=== PATIENT | female | born 1950 | race Caucasian/White ===

== ENCOUNTER → 2019-06-03 | Outpatient (CLI) | payer OTHER, MEDICARE ==
[~2019-06-03] VITALS: Ht 165.1 cm; Wt 74.8 kg
[~2019-06-03] MED LIST: ALLEGRA ALLERG180 MG PO; ASPIR 8181 MG PO; ATACAND32 MG PO; BIEST/PROG PO; CALCIUM 600 +1 EAC1 PO; CELEBREX 200 M200 M1 PO; CHOLECALCIFEROL1 GM PO; COLACE100 MG PO; COMBIGAN EYE DR10 ML OPHTHALMIC; COQ-10100 MG PO; COUMADIN 2 MG TA2 M1 PO; COUMADIN 3 MG TA3 MG PO; EFFEXOR XR150 MG PO; EVISTA PO; HYDROXYCHLOR PO; IRON18 M1 PO; IRON325 PO; L-LYSINE600 MG PO; LIVALO2 MG PO; LIVER-KIDNEY C1 EACH PO; LOVENOX40 MG/0.4 SUBQ; MELOXICAM15 MG PO; METFORMIN HCL500 M3 PO; MIRALAX17 GM PO; OMEGA-31000 M1 PO; OXYBUTYNIN 5 MG5 M2 PO; PERCOCET PO; PRILOSEC20 MG PO; TOPROL XL25 MG PO; TRAVATAN Z2.5 ML OPHTHALMIC; TRICOR145 MG PO; ZETIA10 MG PO
[2019-06-03 07:06] VITALS: BP 134/58
--- NOTE | 2019-06-03 08:42 | EKG ---
[address] [place] [address] ELECTROCARDIOGRAM REPORT Name: SEVERIANOBERNICEEYAD [facility] [id number] Admission: 06/03/19 Attend Phys: Marcellus Kothari MD, Discharge: Date of : 48 Report #: [id number] THIS REPORT FOR: //name// [facility] Test Date: 2019-06-03 Test Time: 07:31:20 Pat Name: EYAD FAUSTIN Department: Room: Gender: F Puttier: Gabo JOHNSON : 1950 Requested By: Marcellus Kothari Order Number: [id number] MD: Wade Archuleta Measurements Intervals [place] Rate: 62 P: 61 MS: 154 QRS: 43 QRSD: 130 T: 31 QT: 448 QTc: 455 Interpretive Statements Sinus rhythm Right bundle branch block Compared to ECG 09/07/2014 09:46:45 No significant changes Electronically Signed On 06-03-2019 8:42:28 BRINE TANK SEPARATOR OPERATOR by Wade Archuleta [email or web address] <ELECTRONICALLY SIGNED> By: Wade Archuleta MD 06/03/19 0842 0 0 Wade Archuleta MD /BRITTNEY
--- NOTE | 2019-06-03 09:14 | CATHLAB ---
[facility] [address] [place] [address] INVASIVE PROCEDURE REPORT Name: EYAD FAUSTIN Indra Room #: REG CL [facility] [id number] Admission: 06/03/19 Attend Phys: Marcellus Kothari, Discharge: Date of : 48 Report #: [id number] THIS REPORT FOR: //name// APPROVED REPORT Study performed: 06/03/2019 07:42:29 Patient Details Patient Status: Out-Patient Room #: The patient is a 68 year-old female Event Personnel Marcellus Kothari Machine Bunch Maker, Sara Lewis RN RN, Kathia Jacobson RTR Scrub, Lisbeth Ballard RTR Scrub, Juan Antonio Clark, Gila Harris waiter/waitress club Performed Left Heart Cath w/or w/o Coronaries [id number] [facility] Indication Chest pain Procedure Narrative The Right Groin^ was infiltrated with 1% Lidocaine subcutaneous anesthesia. A PINNACLE 6FR Sheath #[id number] sheath was inserted into the RFA^. Coronary angiography was performed using coronary diagnostic catheters. The right coronary system was accessed and visualized with a JR4 catheter. The left coronary system was accessed and visualized with a JL4 catheter. The left ventricle was accessed and visualized with a PIGTAIL catheter. Left ventricular/Aortic Valve gradient assessed via catheter pullback. Left ventriculogram was performed in 30 degree projection. Closure device was deployed with a 6 Fr MYNXGRIP 6/7F #[id number]. The patient tolerated the procedure well and there were no complications associated with the procedure. There was no hematoma. Intraoperative Conscious Sedation Sedation start time: 8.04 Case end Time: 8.36 Fentanyl 50 mcg Versed 1 mg Fluoro Time: 1.90 minutes Dose: DAP 3014.00 cGycm2 404 mGy Contrast Type and Amount: Omnipaque 100 ml [facility] [address] [address] INVASIVE PROCEDURE REPORT Name: EYAD FAUSTIN Room #: REG [facility]ddie#: [id number] Admission: 06/03/19 Attend Phys: Marcellus Kothari, Discharge: Date of : 48 Report #: [id number] Coronary Angiography The patient's coronary anatomy is right dominant. Diagnostic Cath Left Main Normal left main LAD Normal left anterior descending Diagonal 1 Normal diagonal branch Circumflex Large nondominant circumflex comprised of two marginal branches Normal circumflex OM1 Normal first marginal branch OM2 Normal second marginal branch Right Coronary Normal dominant right coronary R PDA Normal posterior descending RPLV Normal, small posterior lateral branch Left Ventriculography The left ventricle is normal in size with normal contractility. The left ventricular ejection fraction is estimated to be 65-70%. Left ventricular wall motion abnormalities are not present. There is no mitral insufficiency. Hemodynamics The aortic pressure is 148/48 mmHg with a mean of 97 mmHg. The left ventricular pressure is 147/11 mmHg with a mean of mmHg. The left ventricular end diastolic pressure is 24 mmHg. There was no gradient across the aortic valve upon pullback. Pullback from the left ventricle to the aorta revealed no gradient across the aortic valve. Conclusion 1. Normal to hyperdynamic global and regional left ventricular systolic function. Ejection fraction 65-70% 2. Normal left main 3. Normal coronary vasculature. Right coronary dominant circulation <ELECTRONICALLY SIGNED> By: Marcellus Kothari MD, FACC 06/03/19913 3 3 Marcellus Kothari MD, FACC /INF
--- NOTE | 2019-06-03 09:15 | NUR ---
Pt states migraine is a little better. States there is nothing I can do. Lights low, door closed. Pt given diabetic breakfast tray. in room helping.
== END | disposition home or self-care (01) ==
LOC: CATH 06:38
DX: R07.9 Chest pain, unspecified (principal); R06.09 Other forms of dyspnea; I10 Essential (primary) hypertension; E78.5 Hyperlipidemia, unspecified; K21.9 Gastro-esophageal reflux disease without esophagitis; D64.9 Anemia, unspecified; M19.90 Unspecified osteoarthritis, unspecified site; G47.30 Sleep apnea, unspecified; F32.9 Major depressive disorder, single episode, unspecified; Z98.890 Other specified postprocedural states; Z79.899 Other long term (current) drug therapy; Z90.710 Acquired absence of both cervix and uterus; Z90.49 Acquired absence of other specified parts of digestive tract; Z98.41 Cataract extraction status, right eye; Z82.49 Family history of ischemic heart disease and other diseases of the circulatory system; Z96.1 Presence of intraocular lens; Z88.8 Allergy status to other drugs, medicaments and biological substances

== ENCOUNTER → 2020-01-14 | Outpatient (CLI) | payer OTHER, MEDICARE ==
[~2020-01-14] VITALS: Ht 165.1 cm; Wt 77.1 kg
[~2020-01-14] MED LIST changes: -CHOLECALCIFEROL1 GM PO; +CINNAMON500 MG PO; +HRT PO; +NORVASC 2.5 MG2.5 M1 PO; +PRILOSEC OTC20 MG PO; +VITAMIN C500 M1 PO; +VITAMIN D350 MCG PO; +XYZAL5 MG PO
--- NOTE | ~2020-01-14 | HPC ---
[facility] [place] [address] PAIN MANAGEMENT CONSULTATION Name: EYAD FAUSTIN Room #: REG SAMMY Marcus#: [id number] Admission: 01/14/20 Attend Phys: Luis White MD Discharge: Date of : 48 Report #: [id number] THIS REPORT FOR: cc: Cain Payne II, MD, II,Cain White,Luis Yanez MD ~ CC: CAIN White DATE OF SERVICE: 01/14/2020 CHIEF COMPLAINT: Low back pain with radiation into the posterior aspect of both legs. HISTORY: The patient is a chel 69-year-old who is here today at the request of Dr. Cain Payne because of exacerbation of chronic back pain. She has complained of some aching back over the last several years, but it has really gotten much worse over the last several months. She describes it as a sharp pain in her low back that radiates down the back of her legs, worse with standing and walking, getting in and out of bed, even rolling in bed hurts. She is more comfortable when she is sitting, and if she does some stretching exercises often times, that eases the pain as well. She has a pain intensity level of about 4 today and average daily intensity of about 7 and scores her worst pain as a 9/10. She likes to garden. 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 She has not had back surgery, but does have an artificial hip on the right, placed on her around the 64th birthday. Her hip pain is improved, but she still has a bit of an antalgic gait and feels that the hip rides a bit higher. This may be due to the fact that she has some scoliosis. I was able to review her MRI with her. She has a fair number of degenerative changes throughout the thoracolumbar spine with most notably a severe upper lumbar dextroscoliosis, which creates degenerative disk space loss at the upper lumbar spine at L1-L2 through L3-L4. Below that at L4-L5, there is moderate stenosis due to degenerative disk bulging and facet arthropathy as well as ligamentum thickening. Neural foramina are noted to be narrowed throughout, probably the worst at L5-S1, which is severe on the right. She has multilevel mid lumbar neural foraminal narrowing as well. Her pain is therefore likely multifaceted with both arthropathy and radiculopathy at play, and I suspect that she has some myofascial discomfort as well when standing. MEDICATIONS: Amlodipine, Livalo, CoQ10, vitamin D3, cinnamon, vitamin C, calcium, meloxicam 15 mg once daily, ezetimibe, metoprolol, Xyzal, Prilosec, L-lysine, metformin, venlafaxine. [facility] [address] [place] [address] PAIN MANAGEMENT CONSULTATION Name: EYAD FAUSTIN Room #: REG BLAIRSkyler Marcus#: [id number] Admission: 01/14/20 Attend Phys: Luis White MD Discharge: Date of : 48 Report #: [id number] ALLERGIES: None listed. PAST MEDICAL HISTORY: Positive for adult-onset diabetes. Dr. Payne manages her hypertension. She has longstanding osteoarthritis that involves her hands, feet and her right hip, which was severe enough to require replacement in 2015. Other surgeries include tonsillectomy, hysterectomy, cholecystectomy and cataract surgery, bilateral. She has had several surgeries on her feet. SOCIAL HISTORY: She is . She and her live up in [facility] [facility] on [address] and she enjoys gardening. She denies use of tobacco, drinks a beer in the summer during the hot weather when she comes out of the garden. Pain impact score is 26, which shows that she has a very good ability to manage with her intractable pain. REVIEW OF SYSTEMS: Positive for slight weight gain, fatigue, weakness, headaches on occasion. She has been diagnosed also with glaucoma, which she notes on her review. She has some dyspnea on exertion and has nocturia. She has suffered in the past from depression and is treated with antidepressants. PHYSICAL EXAMINATION: GENERAL: Very pleasant woman, wearing a mask because of COVID restrictions. She is alert and oriented, without signs of anxiety or depression today. Her sense of humor is good and was outgoing. VITAL SIGNS: Her blood pressure 137/68, heart rate 72, respirations 16, O2 sat 100% on room air. She is 5 feet 5 inches, 165 pounds. Her BMI is 28.3. She can independently move from a sitting to standing position and straightens up quickly. She walks without antalgic features. It is immediately evident that she has a dextrorotational scoliosis when examining her without clothing. CHEST: Clear to auscultation. CARDIAC: Rhythm is regular. No murmur was appreciated. MUSCULOSKELETAL: Reveals a normal gait. Dextrorotational scoliosis of the lumbar spine. She has pain with forward flexion, worsening with extension. Tenderness across the lumbosacral segment. The rotational component places the paravertebral muscles in a more prominent position. She has some riding up of her right iliac crest. She has a scar from previous hip replacement on the right. Straight leg raising is only mildly positive in both the sitting and supine position. Sensation is normal. Normal strength in the lower extremities. Deep tendon reflexes are slightly asymmetrical. On the right, her knee jerk reflex is about 50% of what I was able to obtain in the left. She has a small 1+ ankle jerk reflex. IMPRESSION: 1. Lumbar radiculopathy secondary to multilevel degenerative disease. 2. Lumbar spondylosis. 3. Adult-onset diabetes. [facility] [address] [place] [address] PAIN MANAGEMENT CONSULTATION Name: EYAD FAUSTIN Room #: REG [facility] Angeline#: [id number] Admission: 01/14/20 Attend Phys: Luis White MD Discharge: Date of : 48 Report #: [id number] 4. Hypertension. 5. Osteoarthritis, status post right hip replacement. RECOMMENDATIONS: Lumbar epidural steroid injection. We discussed an injection. Potential risks and benefits. I would suggest that we try to inject her at the level of her most severe stenosis at L4-L5. We should get good spread both cephalad and caudad from that location and hopefully that will help with the radicular component and perhaps also with the spondylitic pain as well. PROCEDURE: After informed consent, she was taken to fluoroscopic suite, placed prone, skin prepped with ChloraPrep. Skin anesthetized over the L4-L5 interspace. I was able to identify the epidural space with a single loss of resistance. There was no blood nor CSF aspirated. A 1 mL of Omnipaque injected. Good spread of dye observed into the epidural space followed by 3 mL of 0.5% lidocaine mixed with 80 mg of triamcinolone. She tolerated the procedure well. There were no complications. She was observed for about 45 minutes and discharged. Followup visit planned in the pain clinic in 1 month. Further injections may not be necessary. If she is doing well, she was asked to cancel her appointment. By: 1159 1310 Luis White MD /nt
[2020-01-14 10:30] VITALS: BP 137/68
--- NOTE | 2020-01-14 11:03 | NUR ---
Pain Clinic Assessment: 1. History of Osteoarthritis: HANDS, FEET, RIGHT HIP History of Rheumatoid Arthritis: NO 2. Height: 5 ft. 5 in. 165.1 cm. Weight: 170.0 lb. oz. 77.112 kg. Patient's BMI: 28.3 3. Vital Signs: BP: 137/68 Pulse: 72 Resp: 16 Temp: 02 Sat: 100 ECG Mon: 4. Pain Intensity: 4 5. Fall Risk: Dizziness: N Needs help standing or walking: N Fallen in the last 3 months: N Fall risk comments: 6. Patient on Blood Thinner: None 7. History of Hypertension: Y 8. Opioid Therapy greater than 6 weeks: N Opiate Contract Signed: 9. Risk Assessment Tool Provided: 2-LOW RISK 10. Functional Assessment Tool: 11. Recreational Drug Use: Never Drug Type: Tobacco Use: Never Smoker Tobacco Type: Amount or Packs/day: How Many Years: Alcohol Use: Yes Frequency: Weekly Quant: 1/WEEK
== END | disposition home or self-care (01) ==
LOC: PAIN 08:06
PROVIDERS: ATTEND Anesthesiology Pain Medicine
DX: M51.16 Intervertebral disc disorders with radiculopathy, lumbar region (principal); M47.26 Other spondylosis with radiculopathy, lumbar region; G89.29 Other chronic pain; I10 Essential (primary) hypertension; E11.9 Type 2 diabetes mellitus without complications; M19.90 Unspecified osteoarthritis, unspecified site; Z98.890 Other specified postprocedural states; Z79.899 Other long term (current) drug therapy; Z90.49 Acquired absence of other specified parts of digestive tract; Z90.710 Acquired absence of both cervix and uterus; Z98.41 Cataract extraction status, right eye; Z98.42 Cataract extraction status, left eye; Z96.641 Presence of right artificial hip joint

== ENCOUNTER 2020-07-21 13:09 | Inpatient (IN) | payer OTHER, MEDICARE ==
[~2020-07-21] VITALS: Ht 165.1 cm; Wt 72.6 kg
[~2020-07-21 13:09] MED LIST changes: -NORVASC5 MG PO
[2020-07-21 13:24] VITALS: BP 106/32
[2020-07-21 14:55] LABS: ABSOLUTE NEUTROPHILS 4.7 thou/uL (1.4-8.2); BASOPHILS 1.1 % (0.0-2.0); EOSINOPHILS 1.6 % (0.0-3.0); HEMATOCRIT 36.8 % (37.0-47.0); LYMPHOCYTES 30.7 % (24.0-44.0); MCH 27.2 pg (26.0-34.0); MCHC 32.6 g/dL (28.0-37.0); MCV 83.3 fL (80.0-100.0); MONOCYTES 9.5 % (1.0-8.0); PLATELET COUNT 357 thou/uL (150-400); POLYS 57.1 % (36.0-66.0); RBC 4.41 mil/uL (4.20-5.00); RDW 13.4 % (10.5-14.5); WBC 8.2 thou/uL (4.0-11.0)
[2020-07-21 15:09] LABS: APTT 27.5 Seconds (24.5-32.8); PROTIME 10.6 Seconds (9.3-11.4)
[2020-07-21 15:26] LABS: ANION GAP 12 mmol/L (7-16); BUN 25 mg/dL (7-18); CALCIUM 11.3 mg/dL (8.5-10.1); CHLORIDE 100 mmol/L (98-107); CO2 23 mmol/L (21-32); CREATININE 1.1 mg/dL (0.6-1.0); GLUCOSE 105 mg/dL (74-106); POTASSIUM 4.7 mmol/L (3.5-5.1); SODIUM 135 mmol/L (136-145)
[2020-07-21 15:36] LABS: ALBUMIN 3.8 g/dL (3.4-5.0); SGOT 19 U/L (15-37); SGPT 23 U/L (14-59); TOTAL BILIRUBIN 0.5 mg/dL (0.2-1.0); TOTAL PROTEIN 6.5 g/dL (6.4-8.2); TROPONIN-I <0.06 ng/mL (<0.06)
[2020-07-21 17:18] LABS: CALCIUM 11.6 mg/dL (8.5-10.1); PHOSPHORUS 4.7 mg/dL (2.6-4.7)
[2020-07-21 17:49] VITALS: BP 142/47
--- NOTE | 2020-07-21 18:00 | NUR ---
ATTEMPTED TO CALL REPORT
[2020-07-21 18:33] VITALS: BP 125/50
[2020-07-21 19:26] VITALS: BP 146/43
[2020-07-21 23:57] VITALS: BP 131/50
[2020-07-22] VITALS (18 sets, daily range): BP systolic 83–1149; BP diastolic 42–71
--- NOTE | 2020-07-22 03:57 | NUR ---
Pt is an ER admit. Pt is stable. Admission assessment/education completed and documented. Pt is stable and a heart block noted on the monitor. Heart rate is increase and pt became sinus rhythm overnight. Pt is still stable and NPO for a pacemaker placement. Pt is ambulatory. Blood sugar checked. No acute events noted in pt, continue to monitor. No further needs at this time.
--- NOTE | 2020-07-22 07:36 | EKG ---
[place] [address] [facility] [place] [address] ELECTROCARDIOGRAM REPORT Name: EYAD FAUSTIN Room #: 210- ADM IN M.R.#: [id number] Admission: 07/21/20 Attend Phys: Marcellus Kothari MD, Discharge: Date of : 48 Report #: [id number] [facility] Test Date: 2020-07-22 Test Time: 07:28:32 Pat Name: EYAD FAUSTIN Department: Room: 210 Gender: F Associate Professor Of Medicine: SURENDRA : 1950 Requested By: Marcellus Kothari Order Number: [id number] MD: Jarred White Measurements Intervals [place] Rate: 79 P: 63 IN: 166 QRS: 47 QRSD: 137 T: 19 QT: 475 QTc: 545 Interpretive Statements Sinus rhythm IVCD, consider atypical RBBB Compared to ECG 07/21/2020 13:17:00 Junctional rhythm no longer present Left bundle-branch block no longer present Electronically Signed On 07-22-2020 7:36:25 LINE LEAD by Jarred White [email or web address] <ELECTRONICALLY SIGNED> By: Jarred White MD, [facility] 07/22/2036 7 7 Jarred White MD, [facility] /EPI
--- NOTE | 2020-07-22 07:36 | EKG ---
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: JCHAIBONNY : 1950 Requested By: Andi Seals Order Number: [id number] MD: Marcellus Kothari Measurements Intervals [place] Rate: 37 P: LA: QRS: -44 QRSD: 144 T: 104 QT: 659 QTc: 517 Interpretive Statements Sinus bradycardia with complete heart block Left bundle branch block Compared to ECG 06/03/2019 07:31:20 Left bundle branch block has replaced right bundle branch block Heart block is now present Electronically Signed On 07-22-2020 7:36:29 MAMMOGRAPHY TECH by Marcellus Kothari [email or web address] <ELECTRONICALLY SIGNED> By: Marcellus Kothari MD, [facility] 07/22/20 0736 1317 1317 Marcellus Kothari MD, [facility] /EPI
--- NOTE | 2020-07-22 08:04 | 2DMMODE ---
[facility] [place] [address] [place] [address] 2 D/M-MODE ECHOCARDIOGRAM Name: EYAD FAUSTIN Room #: 210-P [facility] IN ..#: [id number] Admission: 07/21/20 Attend Phys: Marcellus Kothari MD, Discharge: Date of : 48 Report #: [id number] THIS REPORT FOR: cc: Elmer FROST,Kenny Payne II,Kenny Kothari,Marcellus Michael MD [facility] ~ APPROVED REPORT Study performed: 07/21/2020 14:45:20 EXAM: Comprehensive 2D, Doppler, and color-flow Echocardiogram Patient Location: ER Room #: 1 Status: routine BSA: 1.84 HR: 37 bpm Rhythm: Bradycardia Other Information Study Quality: Good Indications Bradycardia 2D Dimensions IVSd: 6.76 (7-11mm) LVOT Diam: 19.08 (18-24mm) LVDd: 51.68 mm PWd: 7.40 (7-11mm) LVDs: 35.17 (25-40mm) Left Atrium: 35.60 (27-40mm) Aortic Root: 24.16 mm Volumes Left Atrial Volume (Systole) Single Plane 4CH: 56.55 mL Single Plane 2CH: 34.71 mL Aortic Valve AoV Peak Brayden.: 3.59 m/s AO Peak Gr.: 51.65 mmHg LVOT Max P.98 mmHg AO Mean Gr.: 29.55 mmHg LVOT Mean P.23 mmHg AO V2 Mean: 2.53 m/s LVOT Max V: 1.32 m/s AO V2 VTI: 84.13 cm LVOT Mean V: 0.78 m/s YASMANY (VTI): 1.20 cm2 LVOT V1 VTI: 35.26 cm [facility] [employer] [address] 2 D/M-MODE ECHOCARDIOGRAM Name: EYAD FAUSTIN Room #: [facility].#: [id number] Admission: 07/21/20 Attend Phys: Marcellus Kothari, Discharge: Date of : 48 Report #: [id number] Vmax: 1.05 cm2 SV (LVOT): 100.78 mL Mitral Valve MV Peak Gr.: 4.74 mmHg MV Mean Gr.: 2.30 mmHg E/A Ratio: 1.1 MV Decel. Time: 292.49 ms MV E Max Brayden.: 1.03 m/s MV A Brayden.: 0.94 m/s MV Max Brayden.: 1.09 m/s MV Mean Brayden.: 0.69 m/s MV VTI: 428.41 mm MVA VTI: 235.24 mm2 MV PHT: 84.82 ms MVA (PHT): 1.25 cm2 Pulmonary Valve PV Peak Brayden.: 1.18 m/s PV Peak Gr.: 5.52 mmHg Pulmonary Vein P Vein S: 0.67 m/s P Vein A: 0.33 m/s P Vein D: 0.32 m/s P Vein A Dur.: 115.3 msec P Vein S/D Ratio: 2.09 Tricuspid Valve TR Peak Brayden.: 3.52 m/s TR Peak Gr.: 49.69 mmHg Left Ventricle The left ventricle is normal size. There is normal LV segmental wall motion. There is normal left ventricular wall thickness. The left ventricular systolic function is normal. The left ventricular ejection fraction is within the normal range. LVEF is 55-60%. Right Ventricle The right ventricle is normal size. The right ventricular systolic function is normal. Atria The left atrium size is normal. The right atrium size is normal. Aortic Valve Aortic valve leaflets are mildly calcified, moderately stenotic. Trace to mild aortic regurgitation. Calculated aortic valve area is 1.1 cm2 (Peak gradient of 51 mmHg, mean pressure gradient of [address] [place] [address] 2 D/M-MODE ECHOCARDIOGRAM Name: EYAD FAUSTIN Room #: [facility] IN [facility]#: [id number] Admission: 07/21/20 Attend Phys: Marcellus Kothari, Discharge: Date of : 48 Report #: [id number] mmHg). Mitral Valve The mitral valve is normal in structure. Mild-moderate mitral regurgitation. No evidence of mitral valve stenosis. Tricuspid Valve The tricuspid valve is normal in structure. Pulmonary artery pressure of 50mmHg. Moderate tricuspid regurgitation. Pulmonic Valve The pulmonary valve is normal in structure. There is no pulmonic valvular regurgitation. Great Vessels The aortic root is normal in size. IVC is normal in size and collapses >50% with inspiration. Pericardium There is no pericardial effusion. <Conclusion> Echocardiogram performed with severe bradycardia and heart block. The left ventricular systolic function is normal. There is normal LV segmental wall motion. LVEF is 55-60%. Aortic valve leaflets are mildly calcified, moderately stenotic. Trace to mild aortic regurgitation. Calculated aortic valve area is 1.1 cm2 (Peak gradient of 51 mmHg, mean pressure gradient of 29 mmHg). The mitral valve is normal in structure. Mild-moderate mitral regurgitation. The tricuspid valve is normal in structure. Pulmonary artery pressure of 50mmHg. There is no pericardial effusion. <ELECTRONICALLY SIGNED> By: Marcellus Kothari MD, FACC 07/22/20803 3 3 Marcellus Kothari MD, FACC /INF
--- NOTE | 2020-07-22 13:48 | P ---
[facility] [place] [address] PROCEDURE REPORT Name: EYAD FAUSTIN Room #: 210-P [facility] IN M.R.#: [id number] Admission: 07/21/20 Attend Phys: Marcellus Kotahri MD, Discharge: Date of : 48 Report #: [id number] THIS REPORT FOR: cc: Kenny Payne II, MD, II,Kenny Archuleta,Wade Moreno MD ~ DATE OF SERVICE: 07/21/2020 PREOPERATIVE DIAGNOSIS: Complete heart block. POSTOPERATIVE DIAGNOSIS: Complete heart block. PROCEDURE PERFORMED: Dual chamber pacemaker implantation. HISTORY: The patient is a 69-year-old female with history of hypertension, diabetes, normal ejection fraction on most recent echocardiogram and recent normal coronary angiogram in 2019, who presents with symptomatic bradycardia secondary to complete heart block. She is here for dual chamber pacemaker implantation. ANESTHESIA: The patient underwent MAC anesthesia with no anesthesia related complications. DESCRIPTION OF PROCEDURE: The patient underwent informed consent. We discussed the details of the procedure including the risks including but not limited to bleeding, infection, vascular damage, cardiac perforation and pneumothorax. The patient was brought to the EP laboratory in a fasting nonsedated state, prepped and draped in a sterile fashion. She received IV antibiotics prior to initiation of the procedure and underwent a venogram showing the patency of the left axillary vein. Next, lidocaine was injected. An incision was made. A pocket created over the prepectoral fascia. Access was obtained twice in the left axillary vein using the extrathoracic approach with sheath positioned using the modified Seldinger technique. Next, a lead was positioned into the right ventricular mid septum. Atrial lead was placed in the right atrial appendage. Both of adequate pacing and sensing thresholds sutured to the prepectoral fascia using Ethibond suture. Device connected. Tug test performed. Device tested and found to be functioning normally. Pocket was irrigated with vancomycin, then closed in 2 layers using 2-0 for the deep layer and 3-0 for the middle layer. Surgical glue was placed to outer skin layer. The patient awoke neurologically and hemodynamically intact. No complications. There is no significant bleeding. The implanted pacemaker was a Medtronic model #W3DR01, serial #[id number]. Atrial lead Medtronic 5076, 45 cm, serial # [id number]. RV lead 5076, 52 cm, serial # [id number]. Atrial lead P-wave 1 millivolt, pacing impedance 627 ohms, pacing threshold of 1 volt at 0.4 milliseconds. RV lead demonstrated R waves, 4 millivolts, pacing impedance 1000 ohms, pacing threshold [facility] [address] [place] [address] PROCEDURE REPORT Name: EYAD FAUSTIN Indra Room [facility]: [facility] IN M.R.#: [id number] Admission: 07/21/20 Attend Phys: Marcellus Kothari MD, Discharge: Date of : 48 Report #: [id number] 0.75 volts at 0.4 milliseconds. Device was programmed to the AAIR/DDDR 60-130 mode. CONCLUSION: 1. Successful dual chamber pacemaker implantation. 2. Satisfactory atrial and ventricular pacing and sensing thresholds. <ELECTRONICALLY SIGNED> By: Wade Archuleta MD 07/22/20 1348 [id number] [id number] Wade Archuleta MD /nt
[2020-07-22] MEDS ORDERED: ATACAND32 MG PO (15:31)
--- NOTE | 2020-07-22 18:05 | NUR ---
RECEIVED PT'S CARE AROUND 0713; PT. ON BED RESTING WITH EYES CLOSED; EQUAL CHEST RISING; SR ON THE MONITOR; AT SHIFT CHANGED TAKEN FOR PROCEDURE; BACK FROM PROCEDURE AT 1200; PT. AWAKE; AOX4; NO C/O PAIN; INCISION DRY; NO HEMATOMA; EDUCATED ABOUT MANTAINING HEAD OF THE BED ON THE 45 DEGRESS; [address]. UNDERSTANDING; BP ABOVE 100s; EDUCATED ABOUT BED REST; ST. UNDERSTANDING; LATE AM MEDICATIONS GIVEN; AROUND 1400 PT'S C/O HEADACHE; "HOT FLUSHES"; ST. "I FEEL LIKE I AM GOING TO PASS OUT"; SBP ON THE 80s; HEAD OF THE BED FLAT; PT. POSITIONED ON [place] POSITION; 02 SAT 96%; 70s ON MONITOR; ARNAUD CAMARA NOTIFIED; ORDERS RECEIVED; NS 250 BOLUS GIVEN; REASSESSMENT PT. ST. FEELING BETTER; SBP ON THE 80s; AFTER ABOUT ONE HOUR SBP ON THE 90s AND ABOVE 100s; PT. ST. FEELING BETTER; SR-VPACED ON THE MONITOR; PRN ACETAMINOPHEN GIVEN; REASSESSMENT DECREASE PAIN; ASSESSMENT CHARGED; LOOSE STOOL ONE TIME; FOLLOWING POC; ASSESSMENT CHARGED; FOLLOWING POC; WILL PASS ON REPORT;
[2020-07-23 00:15] VITALS: BP 133/53
--- NOTE | 2020-07-23 05:01 | NUR ---
SLEPT PART OF SHIFT AND HOB REMAINS ELEVATED. WORKING ON GOALS AND PLAN OF CARE FOR NOC. LEFT ARM REMAINS IN IMOBILIZOR PER ORDERS. GOOD CIRCULATION TO LEFT HAND. PROGRESSING TOWARDS DISCHARGE GOALS FOR TODAY. DENIES COMPLAINTS OF PAIN. CONTINUE TO ASSES CLOSELY.
[2020-07-23 05:36] VITALS: BP 131/58
[2020-07-23 08:34] VITALS: BP 147/78
[2020-07-23 10:31] VITALS: BP 147/78
[2020-07-23] MEDS ORDERED: NORVASC5 MG PO (10:56)
[2020-07-23] MEDS ORDERED: TOPROL XL25 MG PO (10:56)
== END 2020-07-23 11:02 | disposition home or self-care (01) | DRG 244 ==
LOC: ER 13:09 → EROBS 14:59 → 2N 14:59
PROVIDERS: Emergency Medicine; ADMIT Internal Medicine; ATTEND Internal Medicine
PROC: 0JH606Z Insertion of Pacemaker, Dual Chamber into Chest Subcutaneous Tissue and Fascia, Open Approach (ICD-10-PCS; principal; 2020-07-22)
PROC: 02HK3JZ Insertion of Pacemaker Lead into Right Ventricle, Percutaneous Approach (ICD-10-PCS; principal; 2020-07-22)
PROC: 02H63JZ Insertion of Pacemaker Lead into Right Atrium, Percutaneous Approach (ICD-10-PCS; principal; 2020-07-22)
DX: I44.2 Atrioventricular block, complete (principal); G47.33 Obstructive sleep apnea (adult) (pediatric); E11.9 Type 2 diabetes mellitus without complications; E78.5 Hyperlipidemia, unspecified; I10 Essential (primary) hypertension; I95.9 Hypotension, unspecified; Z20.822 Contact with and (suspected) exposure to COVID-19; Z96.641 Presence of right artificial hip joint; Z90.49 Acquired absence of other specified parts of digestive tract; Z90.710 Acquired absence of both cervix and uterus; Z98.42 Cataract extraction status, left eye; Z98.41 Cataract extraction status, right eye; Z79.84 Long term (current) use of oral hypoglycemic drugs; Z79.899 Other long term (current) drug therapy
CPT/HCPCS: 10081; 62110; 62900; 70005

== ENCOUNTER → 2020-07-21 | Outpatient (CLI) | payer OTHER, MEDICARE ==
[~2020-07-21] MED LIST changes: +NORVASC5 MG PO
--- NOTE | 2020-07-22 13:48 | HC ---
[facility] [place] [place] [address] CONSULTATION Name: EYAD FAUSTIN Room #: REG SAMMY Marcus#: [id number] Admission: 07/21/20 Attend Phys: Marcellus Kothari MD, Discharge: Date of : 48 Report #: [id number] THIS REPORT FOR: cc: Elmer FROST,Kenny Payne II,Wade Casas MD, MD ~ ELECTROPHYSIOLOGY CONSULTATION REASON FOR CONSULTATION: Complete heart block. HISTORY OF PRESENT ILLNESS: The patient is a 69-year-old female with history of hypertension, hyperlipidemia, sleep apnea, and diabetes. Echocardiogram back in 2018 showed normal LV size and function, EF 60%. She had a coronary angiogram in 03/2019 with normal coronary arteries. The patient presents after 1 week of increased fatigue, exertional dyspnea and lightheadedness, but no noe syncopal episodes. She had a 12-lead EKG performed in clinic by Dr. Kothari showing a complete heart block. She denies any chest pain or chest tightness. REVIEW OF SYSTEMS: A 12-point review of systems was performed and was negative other what I mentioned above. PAST MEDICAL HISTORY: As above. SOCIAL HISTORY: Does not smoke. FAMILY HISTORY: Noncontributory. ALLERGIES: Include CODEINE. MEDICATIONS: Include Combigan, calcium, candesartan, vitamin D, cinnamon, Coenzyme Q, Zetia, fexofenadine, lysine, meloxicam, metformin, metoprolol 25 mg a day, omega-3, Livalo, venlafaxine. PHYSICAL EXAMINATION: VITAL SIGNS: Temperature is 36.5, pulse 36, respirations 14, blood pressure 106/32, sats 98%. GENERAL: She is in no acute distress. HEENT: Oropharynx is clear. NECK: Supple, no thyromegaly. HEART: Regular rate and rhythm with a bradycardic response. No murmurs. LUNGS: Clear bilaterally. ABDOMEN: Soft, nontender, nondistended with no hepatosplenomegaly. EXTREMITIES: No clubbing, cyanosis, edema. NEUROLOGIC: Cranial nerves 2-12 are intact. LABORATORY DATA: Initial labs demonstrated hemoglobin 12, white count 8.2, [facility] [address] [place] [address] CONSULTATION Name: EYAD FAUSTIN Room #: REG [facility]#: [id number] Admission: 07/21/20 Attend Phys: Marcellus Kothari MD, Discharge: Date of : 48 Report #: [id number] 357. Chemistries pending. Chest x-ray shows no acute process. She did have a COVID test performed yesterday at a [facility] that was reported as negative. I do not have these results in hand. ASSESSMENT: 1. Symptomatic bradycardia. 2. Complete heart block. 3. Hypertension. In summary, the patient is a 69-year-old female presenting with complete heart block, which is new onset. She has alternating left bundle-branch block. Based on these findings, she meets criteria for dual chamber pacemaker implantation for complete heart block. She needs continued beta diony therapy for her hypertension. We have discussed the details of the procedure including the risks, which include but not limited to bleeding, infection, vascular damage, cardiac perforation, pneumothorax. She and her understand these risks and are willing to proceed. She will undergo COVID-19 testing today. <ELECTRONICALLY SIGNED> By: Wade Archuleta MD 07/22/20 1348 1525 1740 Wade Archuleta MD /nt
--- NOTE | 2020-07-23 11:22 | NUR ---
PT WAS SEEN BY CARDIOLOGYANNABEL THIS AM, GIVEN DC INSTRUCTIONS, REVIEWED WITH PT, SHE VERBALIZED UNDERSTANDING. WAS IN ROOM AND ALSO VERBALIZED UNDERSTANDING, WILL FOLLOW UP WITH CARDIOLOGY AND PCP FOR ANY POSSIBLE MED CHANGES. IV AND TELE REMOVED, PT LEFT WITH AND TOOK ALL BELONGINGS
== END ==
LOC: SJCVC 15:10
PROVIDERS: ATTEND Internal Medicine
DX: I44.1 Atrioventricular block, second degree (principal); I45.10 Unspecified right bundle-branch block; R94.31 Abnormal electrocardiogram [ECG] [EKG]; R00.1 Bradycardia, unspecified; I10 Essential (primary) hypertension; E78.5 Hyperlipidemia, unspecified; E11.9 Type 2 diabetes mellitus without complications; G47.33 Obstructive sleep apnea (adult) (pediatric); Z79.899 Other long term (current) drug therapy; Z79.84 Long term (current) use of oral hypoglycemic drugs; Z82.49 Family history of ischemic heart disease and other diseases of the circulatory system

== ENCOUNTER → 2020-07-28 | Outpatient (CLI) | payer OTHER, MEDICARE ==
[~2020-07-28] MED LIST changes: +NORVASC5 MG PO
== END ==
LOC: SJCVC 10:52
PROVIDERS: ATTEND Internal Medicine
DX: I44.2 Atrioventricular block, complete (principal); R00.1 Bradycardia, unspecified; I10 Essential (primary) hypertension; E78.5 Hyperlipidemia, unspecified; E11.9 Type 2 diabetes mellitus without complications; G47.33 Obstructive sleep apnea (adult) (pediatric); Z90.49 Acquired absence of other specified parts of digestive tract; Z90.710 Acquired absence of both cervix and uterus; Z98.890 Other specified postprocedural states; Z96.641 Presence of right artificial hip joint; Z95.0 Presence of cardiac pacemaker; Z88.8 Allergy status to other drugs, medicaments and biological substances; Z79.84 Long term (current) use of oral hypoglycemic drugs; Z79.899 Other long term (current) drug therapy; Z82.49 Family history of ischemic heart disease and other diseases of the circulatory system

== ENCOUNTER → 2020-10-27 | Outpatient (CLI) | payer OTHER, MEDICARE | LOC: SJCVC 13:11 | PROVIDERS: ATTEND Internal Medicine | DX: I44.2 Atrioventricular block, complete (principal); I48.0 Paroxysmal atrial fibrillation; I10 Essential (primary) hypertension; E78.5 Hyperlipidemia, unspecified; E11.9 Type 2 diabetes mellitus without complications; G47.33 Obstructive sleep apnea (adult) (pediatric); Z95.0 Presence of cardiac pacemaker; Z90.49 Acquired absence of other specified parts of digestive tract; Z90.710 Acquired absence of both cervix and uterus; Z98.890 Other specified postprocedural states; Z88.5 Allergy status to narcotic agent; Z79.84 Long term (current) use of oral hypoglycemic drugs; Z79.899 Other long term (current) drug therapy; Z82.49 Family history of ischemic heart disease and other diseases of the circulatory system ==

== ENCOUNTER → 2021-04-28 | Outpatient (CLI) | payer OTHER, MEDICARE | LOC: SJCVC 10:29 | PROVIDERS: ATTEND Internal Medicine | DX: R94.31 Abnormal electrocardiogram [ECG] [EKG] (principal); I48.0 Paroxysmal atrial fibrillation; I10 Essential (primary) hypertension; I44.2 Atrioventricular block, complete; I35.0 Nonrheumatic aortic (valve) stenosis; E78.5 Hyperlipidemia, unspecified; E11.9 Type 2 diabetes mellitus without complications; G47.33 Obstructive sleep apnea (adult) (pediatric); Z95.0 Presence of cardiac pacemaker; Z98.890 Other specified postprocedural states; Z79.899 Other long term (current) drug therapy; Z88.5 Allergy status to narcotic agent ==